=== PATIENT | female | born 1975 ===

== ENCOUNTER 2019-05-25 14:46 | Outpatient (CLI) | payer OTHER | END 2019-05-25 15:39 | disposition home or self-care (01) | LOC: MAMO-SONO 14:46 | DX: Z12.31 Encounter for screening mammogram for malignant neoplasm of breast (principal); N60.11 Diffuse cystic mastopathy of right breast; Z87.898 Personal history of other specified conditions ==

== ENCOUNTER 2021-08-09 20:16 | Emergency (ER) | payer OTHER ==
[~2021-08-09] VITALS: Ht 175.3 cm; Wt 63.5 kg
== END 2021-08-09 22:04 | disposition home or self-care (01) ==
LOC: ER 20:16
DX: S52.502A Unspecified fracture of the lower end of left radius, initial encounter for closed fracture (principal); W19.XXXA Unspecified fall, initial encounter; Y92.89 Other specified places as the place of occurrence of the external cause; S30.0XXA Contusion of lower back and pelvis, initial encounter

== ENCOUNTER 2023-01-08 06:00 | Day surgery (SDC) | payer OTHER | END 2023-01-08 10:50 | disposition home or self-care (01) | LOC: CIR.AMB 06:00 | PROVIDERS: ATTEND Obstetrics & Gynecology | DX: N84.0 Polyp of corpus uteri (principal); Z20.822 Contact with and (suspected) exposure to COVID-19 ==

== ENCOUNTER 2024-01-08 12:37 | Outpatient (CLI) | payer OTHER | END 2024-01-08 12:59 | disposition home or self-care (01) | LOC: MAMO-SONO 12:37 | PROVIDERS: ATTEND Obstetrics & Gynecology | DX: N60.11 Diffuse cystic mastopathy of right breast (principal); E03.9 Hypothyroidism, unspecified ==

== ENCOUNTER 2025-04-05 14:44 | Outpatient (CLI) | payer OTHER | END 2025-04-05 14:53 | disposition home or self-care (01) | LOC: MAMO-SONO 14:44 | PROVIDERS: ATTEND Obstetrics & Gynecology | DX: N60.11 Diffuse cystic mastopathy of right breast (principal) ==